=== PATIENT | female | born 1975 | race Caucasian/White ===

== ENCOUNTER → 2016-12-04 | Outpatient (REF) | payer OTHER | LOC: M LABDRAW1 12:21 | PROVIDERS: ATTEND Physical Medicine & Rehabilitation | DX: Z47.89 Encounter for other orthopedic aftercare (principal) ==

== ENCOUNTER → 2017-08-11 | Outpatient (CLI) | payer OTHER ==
[2017-08-11 17:48] LABS: APPEARANCE, URINE CLEAR (CLEAR); BACTERIA, URINE AUTO NEGATIVE (NEGATIVE); BILIRUBIN, URINE AUTO NEGATIVE (NEGATIVE); BLOOD, URINE BLOOD 1+ (NEGATIVE); COLOR, URINE STRAW (YELLOW); GLUCOSE, URINE (UA) AUTO NEGATIVE (NEGATIVE); KETONE, URINE AUTO NEGATIVE (NEGATIVE); LEUKOCYTE ESTERASE, URINE AUTO NEGATIVE (NEGATIVE); NITRITE, URINE AUTO NEGATIVE (NEGATIVE); PROTEIN, URINE AUTO NEGATIVE (NEGATIVE); RBC, URINE AUTO 0 /HPF (0-3); SPECIFIC GRAVITY URINE AUTO 1.003 (1.002-1.035); SQUAMOUS EPITHELIAL CELL UR AU 0 /HPF (0-6); UROBILINOGEN, URINE AUTO 0.2 mg/dL (0.0-2.0); WBC, URINE AUTO 1 /HPF (0-3)
== END ==
LOC: M SMT 15:33
DX: N20.0 Calculus of kidney (principal)
CPT/HCPCS: 81001

== ENCOUNTER 2017-08-26 07:54 | Day surgery (SDC) | payer OTHER ==
[~2017-08-26 07:54] MED LIST: LIDOCAINE 2% INJ 100 MG/5 ML SDV (FOR ANES.) As Ordered; MIDAZOLAM INJ 2 MG/2 ML VIAL (J2250) As Ordered; PROPOFOL 200 MG/20 ML VIAL As Ordered; fentaNYL 100 MCG/2 ML INJECTION (J3010) As Ordered
[2017-08-26] MEDS ORDERED: PROPOFOL 200 MG/20 ML VIAL As Ordered (07:55)
[2017-08-26] MEDS ORDERED: ONDANSETRON 4MG/2ML VIAL (J2405) As Ordered (09:02)
[2017-08-26] MEDS: PERCOCET 5MG/325MG TAB PO (09:45)
[2017-08-26] MEDS ORDERED: fentaNYL 100 MCG/2 ML INJECTION (J3010) IV (09:45)
[2017-08-26] MEDS ORDERED: LR 1,000 ML IV (09:45)
[2017-08-26] MEDS: ONDANSETRON 4MG/2ML VIAL (J2405) IV (10:27)
== END 2017-08-26 11:00 | disposition home or self-care (01) ==
LOC: M SDC 11:00
DX: N20.0 Calculus of kidney (principal); Z79.899 Other long term (current) drug therapy; F17.210 Nicotine dependence, cigarettes, uncomplicated; Z91.010 Allergy to peanuts; Z91.018 Allergy to other foods
CPT/HCPCS: 50590

== ENCOUNTER → 2017-09-20 | Outpatient (CLI) | payer OTHER ==
[2017-09-20 13:34] LABS: APPEARANCE, URINE CLEAR (CLEAR); BACTERIA, URINE AUTO NEGATIVE (NEGATIVE); BILIRUBIN, URINE AUTO NEGATIVE (NEGATIVE); BLOOD, URINE BLOOD NEGATIVE (NEGATIVE); COLOR, URINE YELLOW (YELLOW); GLUCOSE, URINE (UA) AUTO NEGATIVE (NEGATIVE); KETONE, URINE AUTO NEGATIVE (NEGATIVE); LEUKOCYTE ESTERASE, URINE AUTO NEGATIVE (NEGATIVE); NITRITE, URINE AUTO NEGATIVE (NEGATIVE); PROTEIN, URINE AUTO NEGATIVE (NEGATIVE); RBC, URINE AUTO 1 /HPF (0-3); SPECIFIC GRAVITY URINE AUTO 1.014 (1.002-1.035); SQUAMOUS EPITHELIAL CELL UR AU 1 /HPF (0-6); UROBILINOGEN, URINE AUTO 0.2 mg/dL (0.0-2.0); WBC, URINE AUTO 1 /HPF (0-3)
== END ==
LOC: M SMT 08:48
DX: N20.0 Calculus of kidney (principal)
CPT/HCPCS: 81001

== ENCOUNTER 2017-09-23 05:57 | Day surgery (SDC) | payer OTHER ==
[2017-09-23] MEDS ORDERED: PROPOFOL 500 MG/50 ML VIAL As Ordered (06:38)
[2017-09-23] MEDS ORDERED: LIDOCAINE 2% INJ 100 MG/5 ML SDV (FOR ANES.) As Ordered (06:40)
[2017-09-23] MEDS ORDERED: MIDAZOLAM INJ 2 MG/2 ML VIAL (J2250) As Ordered (06:46)
[2017-09-23] MEDS ORDERED: fentaNYL 100 MCG/2 ML INJECTION (J3010) As Ordered (06:47)
[2017-09-23] MEDS ORDERED: ONDANSETRON 4MG/2ML VIAL (J2405) As Ordered (08:05)
[2017-09-23] MEDS: PERCOCET 5MG/325MG TAB PO (08:43)
== END 2017-09-23 09:10 | disposition home or self-care (01) ==
LOC: M SDC 09:10
DX: N20.0 Calculus of kidney (principal); M48.00 Spinal stenosis, site unspecified; M41.9 Scoliosis, unspecified; L40.9 Psoriasis, unspecified; M45.9 Ankylosing spondylitis of unspecified sites in spine; M15.0 Primary generalized (osteo)arthritis; M54.9 Dorsalgia, unspecified; G89.29 Other chronic pain; F41.9 Anxiety disorder, unspecified; R06.02 Shortness of breath; J30.9 Allergic rhinitis, unspecified; Z91.010 Allergy to peanuts; Z91.018 Allergy to other foods; Z79.899 Other long term (current) drug therapy; Z90.710 Acquired absence of both cervix and uterus; Z86.718 Personal history of other venous thrombosis and embolism; Z86.73 Personal history of transient ischemic attack (TIA), and cerebral infarction without residual deficits; Z86.69 Personal history of other diseases of the nervous system and sense organs; Z72.0 Tobacco use
CPT/HCPCS: 50590

== ENCOUNTER → 2017-10-14 | Outpatient (REF) | payer OTHER ==
[2017-10-14 13:57] LABS: APPEARANCE, URINE HAZY (CLEAR); BACTERIA, URINE AUTO NEGATIVE (NEGATIVE); BILIRUBIN, URINE AUTO NEGATIVE (NEGATIVE); BLOOD, URINE BLOOD NEGATIVE (NEGATIVE); COLOR, URINE YELLOW (YELLOW); GLUCOSE, URINE (UA) AUTO NEGATIVE (NEGATIVE); KETONE, URINE AUTO NEGATIVE (NEGATIVE); LEUKOCYTE ESTERASE, URINE AUTO NEGATIVE (NEGATIVE); MUCUS, URINE SMALL (NEGATIVE); NITRITE, URINE AUTO NEGATIVE (NEGATIVE); PROTEIN, URINE AUTO NEGATIVE (NEGATIVE); RBC, URINE AUTO 4 /HPF (0-3); SPECIFIC GRAVITY URINE AUTO 1.016 (1.002-1.035); SQUAMOUS EPITHELIAL CELL UR AU 2 /HPF (0-6); UROBILINOGEN, URINE AUTO 0.2 mg/dL (0.0-2.0); WBC, URINE AUTO 3 /HPF (0-3)
== END ==
LOC: M SMT 12:55
DX: N20.0 Calculus of kidney (principal)
CPT/HCPCS: 81001

== ENCOUNTER → 2017-10-14 | Outpatient (CLI) | payer OTHER | LOC: M SMT 08:19 | DX: N20.0 Calculus of kidney (principal) | CPT/HCPCS: 74018 ==

== ENCOUNTER 2017-11-09 11:38 | Day surgery (SDC) | payer OTHER ==
[2017-11-09] MEDS: LR 1,000 ML IV (12:10)
[2017-11-09] MEDS ORDERED: PROPOFOL 200 MG/20 ML VIAL As Ordered (14:00)
[2017-11-09] MEDS ORDERED: ONDANSETRON 4MG/2ML VIAL (J2405) As Ordered (14:00)
[2017-11-09] MEDS ORDERED: MIDAZOLAM INJ 2 MG/2 ML VIAL (J2250) As Ordered (14:00)
[2017-11-09] MEDS ORDERED: METOCLOPRAMIDE INJ 10MG/2ML VIAL (J2765) As Ordered (14:00)
[2017-11-09] MEDS ORDERED: LIDOCAINE 2% INJ 100 MG/5 ML SDV (FOR ANES.) As Ordered (14:00)
[2017-11-09] MEDS ORDERED: fentaNYL 100 MCG/2 ML INJECTION (J3010) As Ordered (14:00)
[2017-11-09] MEDS: CONRAY-60 60% 50ML VIAL (Q9961) As Ordered (14:07)
[2017-11-09] MEDS ORDERED: PERCOCET 5MG/325MG TAB As Ordered (15:18)
[2017-11-09] MEDS: PERCOCET 5MG/325MG TAB PO ×2 (15:27→15:58)
[2017-11-09] MEDS ORDERED: KETOROLAC 30 MG/ML VIAL (J1885) As Ordered (15:33)
[2017-11-09] MEDS: KETOROLAC 30 MG/ML VIAL (J1885) IV (15:42)
[2017-11-09] MEDS ORDERED: fentaNYL 100 MCG/2 ML INJECTION (J3010) IV (16:00)
[2017-11-09] MEDS ORDERED: ONDANSETRON 4MG/2ML VIAL (J2405) IV (16:00)
[2017-11-09] MEDS ORDERED: LR 1,000 ML IV (16:00)
[2017-11-09] MEDS ORDERED: ACETAMINOPHEN 650MG ER TAB (TYLENOL ARTHRITIS) PO (17:00)
[2017-11-09] MEDS ORDERED: CIPROFLOXACIN 500 MG TAB PO (18:00)
== END 2017-11-09 16:56 | disposition home or self-care (01) ==
LOC: M SDC 11:38
DX: N20.0 Calculus of kidney (principal); J45.909 Unspecified asthma, uncomplicated; Z79.899 Other long term (current) drug therapy; Z92.3 Personal history of irradiation
CPT/HCPCS: 52352

== ENCOUNTER 2017-11-16 08:28 | Day surgery (SDC) | payer OTHER ==
[~2017-11-16 08:28] MED LIST changes: +CIPRODEX OTIC SUSP 7.5ML As Ordered; -LIDOCAINE 2% INJ 100 MG/5 ML SDV (FOR ANES.) As Ordered; -MIDAZOLAM INJ 2 MG/2 ML VIAL (J2250) As Ordered; -PROPOFOL 200 MG/20 ML VIAL As Ordered; -fentaNYL 100 MCG/2 ML INJECTION (J3010) As Ordered
[2017-11-16] MEDS: LR 1,000 ML IV (08:55)
[2017-11-16] MEDS ORDERED: LIDOCAINE 2% INJ 100 MG/5 ML SDV (FOR ANES.) As Ordered (08:59)
[2017-11-16] MEDS ORDERED: ROCURONIUM BROMIDE 50 MG/5 ML VIAL As Ordered (08:59)
[2017-11-16] MEDS ORDERED: SUCCINYLCHOLINE 100 MG/5 ML SYRINGE (J0330) As Ordered (09:00)
[2017-11-16] MEDS ORDERED: PROPOFOL 200 MG/20 ML VIAL As Ordered (09:00)
[2017-11-16] MEDS ORDERED: dexameTHASONE 4 MG/ML 1ML VIAL (J1100) As Ordered (09:00)
[2017-11-16] MEDS ORDERED: MIDAZOLAM INJ 2 MG/2 ML VIAL (J2250) As Ordered (09:00)
[2017-11-16] MEDS ORDERED: ONDANSETRON 4MG/2ML VIAL (J2405) As Ordered (09:00)
[2017-11-16] MEDS ORDERED: fentaNYL 100 MCG/2 ML INJECTION (J3010) As Ordered (09:00)
[2017-11-16] MEDS ORDERED: PERCOCET 5MG/325MG TAB As Ordered (10:08)
[2017-11-16] MEDS ORDERED: KETOROLAC 30 MG/ML VIAL (J1885) As Ordered (10:08)
[2017-11-16] MEDS: KETOROLAC 30 MG/ML VIAL (J1885) IV (10:16)
[2017-11-16] MEDS: PERCOCET 5MG/325MG TAB PO (10:16)
[2017-11-16] MEDS ORDERED: HYDROmorphone HCL 1 MG/ML SYRINGE (J1170) IV (10:30)
[2017-11-16] MEDS ORDERED: ONDANSETRON 4MG/2ML VIAL (J2405) IV (10:30)
[2017-11-16] MEDS ORDERED: LR 1,000 ML IV (10:30)
[2017-11-16] MEDS ORDERED: fentaNYL 100 MCG/2 ML INJECTION (J3010) IV (10:30)
== END 2017-11-16 11:30 | disposition home or self-care (01) ==
LOC: M SDC 08:28
DX: H69.83 Other specified disorders of Eustachian tube, bilateral (principal); L40.8 Other psoriasis; R51 Headache; F17.210 Nicotine dependence, cigarettes, uncomplicated; Z79.899 Other long term (current) drug therapy; Z91.018 Allergy to other foods; Z91.010 Allergy to peanuts
CPT/HCPCS: 69436

== ENCOUNTER → 2020-01-01 | Outpatient (REF) | payer OTHER ==
[~2020-01-01] MED LIST changes: +CIPR500T19 PO; -CIPRODEX OTIC SUSP 7.5ML As Ordered; +EXCETAB80 PO; +FLON1SPR; +MOTR200T44 PO; +NAPR-885 PO; +OXYC1TAB23 PO; +PERC5TAB12 PO; +PERCOCET PO; +SUDA1TAB3 PO; +TYLE650T35 PO; +ZOFR4TAB16 PO; +ZYRT10CA5 PO
[2020-01-01 17:26] LABS: APPEARANCE, URINE HAZY (CLEAR); BACTERIA, URINE AUTO NEGATIVE (NEGATIVE); BILIRUBIN, URINE AUTO NEGATIVE (NEGATIVE); BLOOD, URINE BLOOD NEGATIVE (NEGATIVE); COLOR, URINE YELLOW (YELLOW); GLUCOSE, URINE (UA) AUTO NEGATIVE (NEGATIVE); KETONE, URINE AUTO TRACE mg/dL (NEGATIVE); LEUKOCYTE ESTERASE, URINE AUTO NEGATIVE (NEGATIVE); MUCUS, URINE SMALL (NEGATIVE); NITRITE, URINE AUTO NEGATIVE (NEGATIVE); PROTEIN, URINE AUTO NEGATIVE (NEGATIVE); RBC, URINE AUTO 1 /HPF (0-3); SPECIFIC GRAVITY URINE AUTO 1.017 (1.002-1.035); SQUAMOUS EPITHELIAL CELL UR AU 4 /HPF (0-6); UROBILINOGEN, URINE AUTO 0.2 mg/dL (0.0-2.0); WBC, URINE AUTO 1 /HPF (0-3)
== END ==
LOC: M SMT 16:53
PROVIDERS: ATTEND Nurse Practitioner Women's Health
DX: R30.0 Dysuria (principal)

== ENCOUNTER → 2020-01-18 | Outpatient (REF) | payer OTHER ==
[~2020-01-18] MED LIST changes: +DULO1CAP5 PO; +FLOM0.4C39 PO; +LIPI20TA PO; +ONDA4TAB6 PO; +OXYC10TA3 PO; +PREG50CA2 PO; +SENN-80 PO; +SUMA100T2 PO; +TIZA4TAB4 PO; +WELLTAB38 PO; +ZOLO25TA PO; +ZYRTTAB8 PO
== END ==
LOC: M SMT 10:35
PROVIDERS: ATTEND Nurse Practitioner Women's Health
DX: N20.0 Calculus of kidney (principal)

== ENCOUNTER → 2020-01-18 | Outpatient (CLI) | payer OTHER | LOC: M RAD 13:20 | PROVIDERS: ATTEND Physician Assistant Medical | DX: M54.12 Radiculopathy, cervical region (principal); Z53.9 Procedure and treatment not carried out, unspecified reason ==

== ENCOUNTER → 2020-01-22 | Outpatient (CLI) | payer OTHER | LOC: M LABSMTC 11:20 | PROVIDERS: ATTEND Anesthesiology | DX: Z11.59 Encounter for screening for other viral diseases (principal); Z03.89 Encounter for observation for other suspected diseases and conditions ruled out | CPT/HCPCS: C9803; U0003 ==

== ENCOUNTER 2020-01-25 09:06 | Day surgery (SDC) | payer OTHER ==
[~2020-01-25] VITALS: Ht 172.7 cm; Wt 82.1 kg
[~2020-01-25 09:06] MED LIST changes: +LIDOCAINE 1% MDV 20ML VIAL SQ PRN; +LR 1,000 ML IV ONE; +ceFAZolin SOD 2 GM in IV 1 EA IV ONE
[2020-01-25] MEDS ORDERED: LR 1,000 ML IV SCH (12:30)
[2020-01-25] MEDS ORDERED: oxyCODONE 5MG TAB PO PRN (12:30)
[2020-01-25] MEDS ORDERED: ONDANSETRON 4MG/2ML VIAL IV PRN (13:15)
[2020-01-25 13:20] VITALS: BP 134/81
--- NOTE | 2020-01-25 16:03 | REP ---
Clinical: Kidney stone. Technique: Single supine view of the abdomen and pelvis. Findings: Evaluation of the urinary tract system is limited due to overlying bowel gas and technique. No obvious intrarenal, ureteral or bladder calculi identified. No organomegaly. Bowel gas pattern is normal. Skeletal structures are intact. Impression: Nonspecific abdominal radiograph. Limited evaluation for urinary tract calcifications. Electronically Signed by Tony Dubon MD 01/25/2020 09:18 A
== END 2020-01-25 13:28 | disposition home or self-care (01) ==
LOC: M SDC 09:06
PROVIDERS: ATTEND Urology
DX: N20.0 Calculus of kidney (principal); E04.1 Nontoxic single thyroid nodule; D64.9 Anemia, unspecified; Z87.891 Personal history of nicotine dependence; G43.909 Migraine, unspecified, not intractable, without status migrainosus; D32.9 Benign neoplasm of meninges, unspecified; D41.9 Neoplasm of uncertain behavior of unspecified urinary organ; F12.10 Cannabis abuse, uncomplicated; Z91.040 Latex allergy status; Z91.013 Allergy to seafood; Z91.010 Allergy to peanuts; Z91.018 Allergy to other foods
CPT/HCPCS: 50590; 74018; J0690; J2405

== ENCOUNTER → 2020-03-19 | Outpatient (CLI) | payer OTHER ==
[~2020-03-19] MED LIST changes: +ACET650T61 PO; -LIDOCAINE 1% MDV 20ML VIAL SQ PRN; -LR 1,000 ML IV ONE; -TYLE650T35 PO; -ceFAZolin SOD 2 GM in IV 1 EA IV ONE
[2020-03-19 19:52] LABS: ALBUMIN 4.1 GM/DL (3.2-5.2); ALT/SGPT 15 U/L (12-78); BILIRUBIN,TOTAL 0.4 MG/DL (0.2-1.0); BLOOD UREA NITROGEN 9 MG/DL (7-18); CALCIUM LEVEL 9.3 MG/DL (8.5-10.1); CARBON DIOXIDE LEVEL 29 MEQ/L (21-32); CHLORIDE LEVEL 105 MEQ/L (98-107); CREATININE FOR GFR 1.02 MG/DL (0.55-1.30); GLOMERULAR FILTRATION RATE > 60.0 (>58); GLUCOSE, FASTING 96 MG/DL (70-100); POTASSIUM SERUM 3.7 MEQ/L (3.5-5.1); SODIUM LEVEL 141 MEQ/L (136-145)
== END ==
LOC: M PLALAB 14:50
PROVIDERS: ATTEND Physician Assistant
DX: L40.9 Psoriasis, unspecified (principal); B35.1 Tinea unguium; L85.9 Epidermal thickening, unspecified

== ENCOUNTER → 2020-06-18 | Outpatient (CLI) | payer OTHER ==
--- NOTE | 2020-06-18 10:23 | REP ---
INDICATION: NAUSEA W/ VOMITING COMPARISON: None. TECHNIQUE: Real time marie scale ultrasound examination using curved array transducer. FINDINGS: Liver is normal in contour, size, and echogenicity without focal hepatic lesions identified. Pancreas is incompletely evaluated due to interposed bowel gas. The gallbladder is normal and without gallstones, wall thickening, or pericholecystic fluid. No biliary ductal dilatation is appreciated and the common bile duct measures 3.8 mm diameter. Right kidney is normal in reniform shape and demonstrates multiple nonobstructing nephroliths up to 4 mm without hydronephrosis. Kidney measures 10.1 x 4.9 x 4.1 cm. No ascites in the visualized right upper quadrant. IMPRESSION: 1. Nephrolithiasis. 2. Otherwise normal right upper quadrant/liver ultrasound. <Electronically signed by Tony Dubon > 06/18/20 [id number]
== END ==
LOC: M RAD 09:26
PROVIDERS: ATTEND Internal Medicine Gastroenterology
DX: N13.30 Unspecified hydronephrosis (principal); R11.2 Nausea with vomiting, unspecified

== ENCOUNTER → 2020-09-16 | Outpatient (CLI) | payer OTHER | LOC: M RAD 09:01 | PROVIDERS: ATTEND Internal Medicine Gastroenterology | DX: K82.8 Other specified diseases of gallbladder (principal); Z53.9 Procedure and treatment not carried out, unspecified reason ==

== ENCOUNTER → 2020-10-19 | Outpatient (CLI) | payer OTHER ==
[~2020-10-19] MED LIST changes: +ACET-683 PO; +BACL1TAB9 PO; +MELA10TA PO; +MILKSUS3 PO; +MIRA3350 PO; +NARC1SPR; +PROM25TA12 PO; +PROP10TA56 PO; +TRAZ-257 PO; +VENTAER INH; +VITA-243 PO; +medical marijuana
== END ==
LOC: M LABSMTC 10:07
PROVIDERS: ATTEND Anesthesiology
DX: Z01.812 Encounter for preprocedural laboratory examination (principal); Z20.822 Contact with and (suspected) exposure to COVID-19

== ENCOUNTER → 2020-11-24 | Outpatient (CLI) | payer OTHER ==
[~2020-11-24] MED LIST changes: +MORP15TA2 PO; +VITA50005 PO
== END ==
LOC: M LABSMTC 08:31
PROVIDERS: ATTEND Anesthesiology
DX: Z01.818 Encounter for other preprocedural examination (principal); Z20.822 Contact with and (suspected) exposure to COVID-19

== ENCOUNTER 2020-11-29 11:45 | Day surgery (SDC) | payer OTHER ==
[~2020-11-29] VITALS: Ht 172.7 cm; Wt 81.6 kg
[~2020-11-29 11:45] MED LIST changes: +NS 1,000 ML IV ONE
[2020-11-29] MEDS ORDERED: propofoL 200 MG/20 ML VIAL As Ordered ONE (12:36)
[2020-11-29] MEDS ORDERED: fentaNYL 100 MCG/2 ML INJECTION (J3010) As Ordered ONE (12:36)
[2020-11-29] MEDS ORDERED: LIDOCAINE 2% 100MG/5ML SDV (FOR ANES.) As Ordered ONE (12:36)
--- NOTE | 2020-11-29 14:21 | ROOR ---
Patient Name: Alba Parker Procedure Date: 11/29/2020 1:57 PM Date of : 1975 Age: 45 Room: [facility] Gender: Female Note Status: Finalized Procedure: Upper GI endoscopy Indications: Heartburn, Nausea with vomiting Providers: Farhat GOVEA MD Referring MD: NELI ELKINS MD Requesting Provider: Medicines: Monitored Anesthesia Care Complications: No immediate complications. Procedure: Pre-Anesthesia Assessment: - The heart rate, respiratory rate, oxygen saturations, blood pressure, adequacy of pulmonary ventilation, and response to care were monitored throughout the procedure. The Endoscope was introduced through the mouth, and advanced to the second part of duodenum. The upper GI endoscopy was accomplished without difficulty. The patient tolerated the procedure well. Findings: The esophagus was normal. The stomach was normal. A small duodenal diverticulum is seen in the distal second portion, The examined duodenum was otherwise normal. Impression: - Normal esophagus. - Normal stomach. - Normal examined duodenum with a small diverticulum. - No specimens collected. Recommendation: - Perform a HIDA (hepatobiliary iminodiacetic acid) scan at appointment to be scheduled. - My office will call you in the next few days to set you up for this study/exam. - Follow an antireflux regimen. - Eat smaller, more frequent meals throughout the day. - Low fat diet. - Liquid/soft foods are tolerated better than solid foods. - Low fiber/well cooked vegetables are tolerated better than high fiber/fibrous foods/raw vegetables. - Avoid medications that inhibit gastric/intestinal motility such as narcotic medications. Procedure Code(s): --- Professional --- 84205, Esophagogastroduodenoscopy, flexible, transoral; diagnostic, including collection of specimen(s) by brushing or washing, when performed (separate procedure) Diagnosis Code(s): --- Professional --- R11.2, Nausea with vomiting, unspecified R12, Heartburn CPT copyright 2019 [employer]. All rights reserved. The codes documented in this report are preliminary and upon dry[employer] farmer review may be revised to meet current compliance requirements. Farhat Govea MD Farhat GOVEA MD 11/29/2020 2:21:13 PM Electronically signed by Farhat GOVEA MD Number of Addenda: 0 Note Initiated On: 11/29/2020 1:57 PM Estimated Blood Loss: Estimated blood loss: none.
[2020-11-29 14:40] VITALS: BP 138/76
== END 2020-11-29 14:40 | disposition home or self-care (01) ==
LOC: M OPP 11:45
PROVIDERS: ATTEND Internal Medicine Gastroenterology
DX: R12 Heartburn (principal); R11.2 Nausea with vomiting, unspecified; K57.10 Diverticulosis of small intestine without perforation or abscess without bleeding; D64.9 Anemia, unspecified; M19.90 Unspecified osteoarthritis, unspecified site; L40.9 Psoriasis, unspecified; F41.9 Anxiety disorder, unspecified; F32.9 Major depressive disorder, single episode, unspecified; G43.909 Migraine, unspecified, not intractable, without status migrainosus; G62.9 Polyneuropathy, unspecified; J44.9 Chronic obstructive pulmonary disease, unspecified; M79.7 Fibromyalgia; L30.9 Dermatitis, unspecified; K74.60 Unspecified cirrhosis of liver; M41.9 Scoliosis, unspecified; Z86.14 Personal history of Methicillin resistant Staphylococcus aureus infection; Z87.891 Personal history of nicotine dependence; Z91.010 Allergy to peanuts; Z91.013 Allergy to seafood; Z91.018 Allergy to other foods; Z91.040 Latex allergy status; Z79.899 Other long term (current) drug therapy
CPT/HCPCS: 43235; J3010